=== PATIENT | female | born 1930 | race Caucasian/White ===

== ENCOUNTER → 2016-12-02 | Outpatient (CLI) | payer MEDICARE ==
[~2016-12-02] MED LIST: ASPI81TA7 PO; FOSI PO; NADO20TA2 PO
--- NOTE | 2016-12-02 14:39 | REP ---
Clinical: Incisional hernia. History of colon cancer. Comparison: 09/16/2015, 05/07/2014. Findings: Lung bases clear. Visualized heart and pericardium normal. Liver, spleen, pancreas, bilateral adrenal glands are normal. Cholelithiasis noted. Kidneys demonstrate chronic atrophic changes as well as left renal lesions suggesting cysts and possible lower pole mass. The enteric system is without obstruction or acute inflammatory process. Sigmoid diverticulosis noted without acute diverticulitis. Pelvis demonstrates normal bladder and evidence for prior hysterectomy. No pelvic fluid or ascites. No obvious adenopathy. No mass lesion. Atherosclerotic changes to the vasculature noted without aneurysm. Musculoskeletal structures demonstrate age-related degenerative changes. No hernias are identified. Impression: 1. Diverticulosis without acute diverticulitis. 2. Left renal hypodensities suggesting upper pole cysts and suspected lower pole renal mass similar to 2014. 3. Cholelithiasis. 4. No hernia. 5. No further acute intra-abdominal or pelvic pathology appreciated. Signed by Fred Jackson MD 12/02/2016 02:31 P
== END ==
LOC: M RAD 13:27
PROVIDERS: ATTEND Surgery
DX: K57.30 Diverticulosis of large intestine without perforation or abscess without bleeding (principal); K80.20 Calculus of gallbladder without cholecystitis without obstruction; Z85.038 Personal history of other malignant neoplasm of large intestine

== ENCOUNTER → 2017-06-28 | Outpatient (REF) | payer MEDICARE | LOC: M LAB REF 17:29 | PROVIDERS: ATTEND Internal Medicine | DX: C18.9 Malignant neoplasm of colon, unspecified (principal) ==

== ENCOUNTER → 2017-07-07 | Outpatient (CLI) | payer MEDICARE ==
[~2017-07-07] MED LIST changes: +GASTROGRAFIN SOLUTION 30ML (Q9963) As Ordered ONE
--- NOTE | 2017-07-07 17:07 | REP ---
CT of the abdomen and pelvis without IV contrast but with bowel contrast: Comparison is 12/02/2016. There is an L 8 mm nodule in the posterior basilar segment of the right lower lobe. This measured 7 mm and 09/16/2015 and 5 mm 09/13. The hepatic parenchyma is homogeneous. There is any 2.1-cm gallbladder calculus with rim calcification, unchanged. The pancreas and spleen are unremarkable. The adrenals are unremarkable. Right kidney appears atrophic but otherwise unremarkable. I suspect there is a solid mass at the lower pole of the right kidney. This could be confirmed by MRI or ultrasound. The absence of IV contrast and CT is less sensitive. There are hypodensities in the mid and upper pole of the left kidney compatible with cysts, unchanged. There is calcified atheroma. The abdominal aorta. No aneurysm or adenopathy. The bowel and mesentery are unremarkable except for diverticulosis without diverticulitis, unchanged. Pelvis: There is a hysterectomy. Vaginal cuff and adnexa are unremarkable. The bladder is unremarkable. There is no ascites or adenopathy. Impression: Probable solid mass at the lower pole of the left kidney, unchanged. Left renal cyst. Atrophic right kidney. Gallbladder calculus, unchanged. Diverticulosis without diverticulitis. Signed by Beltran Gallo MD 07/07/2017 04:58 P
== END ==
LOC: M RAD 12:12
PROVIDERS: ATTEND Internal Medicine
DX: N28.89 Other specified disorders of kidney and ureter (principal); Z85.038 Personal history of other malignant neoplasm of large intestine; N28.1 Cyst of kidney, acquired; K80.20 Calculus of gallbladder without cholecystitis without obstruction; K57.30 Diverticulosis of large intestine without perforation or abscess without bleeding
CPT/HCPCS: 74176; Q9963

== ENCOUNTER → 2017-09-20 | Outpatient (REF) | payer MEDICARE ==
[~2017-09-20] MED LIST changes: -GASTROGRAFIN SOLUTION 30ML (Q9963) As Ordered ONE
== END ==
LOC: M LAB REF 17:33
PROVIDERS: ATTEND Internal Medicine
DX: C18.9 Malignant neoplasm of colon, unspecified (principal)

== ENCOUNTER → 2017-12-12 | Outpatient (CLI) | payer MEDICARE ==
[2017-12-12 12:03] LABS: BLOOD UREA NITROGEN 19 MG/DL (7-18)
[2017-12-12 12:03] LABS: CREATININE FOR GFR 1.04 MG/DL (0.55-1.30); GLOMERULAR FILTRATION RATE 53.5 (>32)
== END ==
LOC: M LAB 11:12
DX: R10.31 Right lower quadrant pain (principal)
CPT/HCPCS: 82565

== ENCOUNTER → 2017-12-13 | Outpatient (CLI) | payer MEDICARE ==
[~2017-12-13] MED LIST changes: -ASPI81TA7 PO; -FOSI PO; +GASTROGRAFIN SOLUTION 30ML (Q9963) As Ordered; +ISOVUE-370 76% 100ML VIAL (Q9967) As Ordered; -NADO20TA2 PO
== END ==
LOC: M RAD 14:56
DX: R10.31 Right lower quadrant pain (principal); R19.07 Generalized intra-abdominal and pelvic swelling, mass and lump; E27.9 Disorder of adrenal gland, unspecified; N28.89 Other specified disorders of kidney and ureter; N28.1 Cyst of kidney, acquired
CPT/HCPCS: Q9963

== ENCOUNTER → 2018-01-04 | Outpatient (CLI) | payer MEDICARE ==
[~2018-01-04] MED LIST changes: -GASTROGRAFIN SOLUTION 30ML (Q9963) As Ordered; -ISOVUE-370 76% 100ML VIAL (Q9967) As Ordered; +LIDOCAINE 1% MDV 20ML VIAL As Ordered
[2018-01-04 10:44] LABS: INR 1.08; PROTHROMBIN TIME 14.1 SECONDS (12.4-14.5)
[2018-01-04 10:45] LABS: PARTIAL THROMBOPLASTIN TIME 38.6 SECONDS (26.8-37.9)
== END ==
LOC: M LAB 10:26 → M RADPRO 10:26
DX: C79.2 Secondary malignant neoplasm of skin (principal); C80.1 Malignant (primary) neoplasm, unspecified; Z79.899 Other long term (current) drug therapy; Z91.040 Latex allergy status; Z88.8 Allergy status to other drugs, medicaments and biological substances; Z91.048 Other nonmedicinal substance allergy status
CPT/HCPCS: 49180

== ENCOUNTER 2018-02-14 10:15 | Inpatient (IN) | payer MEDICARE ==
[2018-02-14] MEDS: PANTOPRAZOLE 40MG INJ (PROTONIX) (C9113) IV (09:00)
[2018-02-14] MEDS: FOSINOPRIL 10 MG TAB PO (09:00)
[2018-02-14] MEDS ORDERED: ePHEDrine SULFATE 25 MG/5 ML(5MG/ML) SYRINGE As Ordered (10:27)
[2018-02-14] MEDS ORDERED: fentaNYL 100 MCG/2 ML INJECTION (J3010) As Ordered ×2 (10:27→14:02)
[2018-02-14] MEDS ORDERED: ROCURONIUM BROMIDE 50 MG/5 ML VIAL As Ordered (10:27)
[2018-02-14] MEDS ORDERED: PHENYLEPHRINE INJ 10MG/ML VIAL (J2370) As Ordered (10:27)
[2018-02-14] MEDS ORDERED: NS 1,000 ML IV ×2 (10:30→13:38)
[2018-02-14] MEDS ORDERED: SCOPOLAMINE 1MG TRANSDERMAL PATCH As Ordered (11:45)
[2018-02-14] MEDS: SCOPOLAMINE 1MG TRANSDERMAL PATCH TOP (11:49)
[2018-02-14] MEDS: BUPIVACAINE/EPIN 0.5% 30 ML VIAL As Ordered ×2 (12:07→13:30)
[2018-02-14] MEDS: CEFAZOLIN SOD 1 GM in APPROPRIATE DILUENT 1 EA IV (12:44)
[2018-02-14] MEDS ORDERED: dexameTHASONE 4 MG/ML 1ML VIAL (J1100) As Ordered ×2 (12:44)
[2018-02-14] MEDS ORDERED: HYDROmorphone HCL 2 MG/ML 1ML VIAL (J1170) As Ordered (13:07)
[2018-02-14] MEDS: BUPIVACAINE HCL 0.25% 30 ML VIAL As Ordered (13:23)
[2018-02-14] MEDS: BUPIVACAINE LIPOSOME/PF 1.3% 20 ML VIAL (13.3MG/ML)(EXPAREL) As Ordered (13:23)
[2018-02-14] MEDS ORDERED: ONDANSETRON 4MG/2ML VIAL (J2405) As Ordered (13:28)
[2018-02-14] MEDS: NS 1,000 ML IV ×2 (13:38→21:38)
[2018-02-14] MEDS ORDERED: PROMETHAZINE INJ 25 MG/ML VIAL (J2550) IV (13:45)
[2018-02-14] MEDS ORDERED: NALOXONE INJ 0.4 MG/1 ML VIAL (J2310) IV (13:45)
[2018-02-14] MEDS ORDERED: SENNA 8.6 MG TAB (SENOKOT) PO (13:45)
[2018-02-14] MEDS ORDERED: NALBUPHINE HCL 10 MG/ML AMP (J2300) IV (13:45)
[2018-02-14] MEDS ORDERED: EPIDURAL/PCA KEYS XX (13:45)
[2018-02-14] MEDS ORDERED: METOCLOPRAMIDE INJ 10MG/2ML VIAL (J2765) IV (13:45)
[2018-02-14] MEDS ORDERED: MORPHINE 1MG/ML IN 0.9% NACL 100ML IV BAG IV (13:45)
[2018-02-14] MEDS ORDERED: IPRATROPIUM 0.5MG/ALBUTEROL 2.5MG INH SOL UD 3ML (DUONEB)(J7620) NEB (13:45)
[2018-02-14] MEDS ORDERED: MORPHINE 1MG/ML IN 0.9% NACL 100ML IV BAG As Ordered (13:57)
[2018-02-14] MEDS: fentaNYL 100 MCG/2 ML INJECTION (J3010) IV ×4 (14:10→14:30)
[2018-02-14] MEDS: LR 1,000 ML IV (14:30)
[2018-02-14] MEDS ORDERED: PERCOCET 5MG/325MG TAB PO (14:30)
[2018-02-14] MEDS ORDERED: ONDANSETRON 4MG/2ML VIAL (J2405) IV (14:30)
[2018-02-14] MEDS: NADOLOL 20MG TABLET PO (15:55)
[2018-02-14] MEDS: IPRATROPIUM 0.5MG/ALBUTEROL 2.5MG INH SOL UD 3ML (DUONEB)(J7620) NEB ×2 (17:36→20:00)
[2018-02-14] MEDS: DOCUSATE SODIUM 100 MG CAP PO (20:15)
[2018-02-15] MEDS: IPRATROPIUM 0.5MG/ALBUTEROL 2.5MG INH SOL UD 3ML (DUONEB)(J7620) NEB ×4 (02:00→20:00)
[2018-02-15] MEDS: NS 1,000 ML IV ×2 (05:16→15:09)
[2018-02-15 06:12] LABS: HEMATOCRIT 39.6 % (36.0-47.0); MEAN CORPUSCULAR HGB CONC 32.8 g/dl (32.0-36.5); MEAN CORPUSCULAR VOLUME 94.3 fl (80.0-96.0); PLATELET COUNT, AUTOMATED 180 10^3/uL (150-450); RED CELL DISTRIBUTION WIDTH 12.1 % (11.5-14.5); WHITE BLOOD COUNT 11.8 10^3/uL (4.0-10.0)
[2018-02-15 06:35] LABS: ANION GAP 6 MEQ/L (8-16); BLOOD UREA NITROGEN 15 MG/DL (7-18); CALCIUM LEVEL 7.6 MG/DL (8.8-10.2); CARBON DIOXIDE LEVEL 22 MEQ/L (21-32); CHLORIDE LEVEL 114 MEQ/L (98-107); CREATININE FOR GFR 0.92 MG/DL (0.55-1.30); GLOMERULAR FILTRATION RATE > 60.0 (>32); GLUCOSE, FASTING 101 MG/DL (70-100); POTASSIUM SERUM 4.6 MEQ/L (3.5-5.1); SODIUM LEVEL 142 MEQ/L (136-145)
[2018-02-15] MEDS: DOCUSATE SODIUM 100 MG CAP PO ×2 (08:59→20:06)
[2018-02-15] MEDS: FOSINOPRIL 10 MG TAB PO (09:00)
[2018-02-15] MEDS: PANTOPRAZOLE 40MG INJ (PROTONIX) (C9113) IV (09:00)
[2018-02-15] MEDS ORDERED: ACETAMINOPHEN TAB 650MG DOSE (2X325MG) PO (16:30)
[2018-02-15] MEDS: NADOLOL 20MG TABLET PO (20:08)
[2018-02-16] MEDS: traMADol 50 MG TAB PO ×5 (00:39→21:08)
[2018-02-16] MEDS: IPRATROPIUM 0.5MG/ALBUTEROL 2.5MG INH SOL UD 3ML (DUONEB)(J7620) NEB ×4 (01:31→20:00)
[2018-02-16 06:18] LABS: HEMATOCRIT 38.1 % (36.0-47.0); HEMOGLOBIN 12.3 g/dl (12.0-15.5); MEAN CORPUSCULAR HEMOGLOBIN 30.5 pg (27.0-33.0); MEAN CORPUSCULAR HGB CONC 32.3 g/dl (32.0-36.5); MEAN CORPUSCULAR VOLUME 94.5 fl (80.0-96.0); PLATELET COUNT, AUTOMATED 190 10^3/uL (150-450); RED BLOOD COUNT 4.03 10^6/uL (4.00-5.40); RED CELL DISTRIBUTION WIDTH 12.2 % (11.5-14.5); WHITE BLOOD COUNT 9.9 10^3/uL (4.0-10.0)
[2018-02-16 06:36] LABS: ANION GAP 9 MEQ/L (8-16); BLOOD UREA NITROGEN 16 MG/DL (7-18); CALCIUM LEVEL 8.4 MG/DL (8.8-10.2); CARBON DIOXIDE LEVEL 21 MEQ/L (21-32); CHLORIDE LEVEL 112 MEQ/L (98-107); CREATININE FOR GFR 0.93 MG/DL (0.55-1.30); GLOMERULAR FILTRATION RATE > 60.0 (>32); GLUCOSE, FASTING 72 MG/DL (70-100); SODIUM LEVEL 142 MEQ/L (136-145)
[2018-02-16] MEDS: PANTOPRAZOLE 40MG INJ (PROTONIX) (C9113) IV (08:30)
[2018-02-16] MEDS: FOSINOPRIL 10 MG TAB PO (08:37)
[2018-02-16] MEDS: DOCUSATE SODIUM 100 MG CAP PO ×2 (08:37→21:07)
[2018-02-16] MEDS: NADOLOL 20MG TABLET PO (21:07)
[2018-02-17] MEDS: IPRATROPIUM 0.5MG/ALBUTEROL 2.5MG INH SOL UD 3ML (DUONEB)(J7620) NEB ×4 (01:15→20:00)
[2018-02-17] MEDS: traMADol 50 MG TAB PO ×3 (02:42→21:26)
[2018-02-17 05:54] LABS: HEMATOCRIT 38.5 % (36.0-47.0); HEMOGLOBIN 12.6 g/dl (12.0-15.5); MEAN CORPUSCULAR HEMOGLOBIN 30.6 pg (27.0-33.0); MEAN CORPUSCULAR HGB CONC 32.7 g/dl (32.0-36.5); MEAN CORPUSCULAR VOLUME 93.4 fl (80.0-96.0); PLATELET COUNT, AUTOMATED 198 10^3/uL (150-450); RED BLOOD COUNT 4.12 10^6/uL (4.00-5.40); RED CELL DISTRIBUTION WIDTH 12.1 % (11.5-14.5); WHITE BLOOD COUNT 10.7 10^3/uL (4.0-10.0)
[2018-02-17 06:25] LABS: ANION GAP 8 MEQ/L (8-16); BLOOD UREA NITROGEN 19 MG/DL (7-18); CALCIUM LEVEL 8.3 MG/DL (8.8-10.2); CARBON DIOXIDE LEVEL 21 MEQ/L (21-32); CHLORIDE LEVEL 111 MEQ/L (98-107); CREATININE FOR GFR 0.86 MG/DL (0.55-1.30); GLOMERULAR FILTRATION RATE > 60.0 (>32); GLUCOSE, FASTING 72 MG/DL (70-100); POTASSIUM SERUM 3.8 MEQ/L (3.5-5.1); SODIUM LEVEL 140 MEQ/L (136-145)
[2018-02-17] MEDS: PANTOPRAZOLE 40MG INJ (PROTONIX) (C9113) IV (09:00)
[2018-02-17] MEDS: ONDANSETRON 4MG/2ML VIAL (J2405) IV ×2 (09:00→17:00)
[2018-02-17] MEDS: MIRALAX *UNIT DOSE* 17GM PACKET PO ×2 (11:45→12:41)
[2018-02-17] MEDS: DOCUSATE SODIUM 100 MG CAP PO ×2 (12:40→21:24)
[2018-02-17] MEDS: FOSINOPRIL 10 MG TAB PO (12:41)
[2018-02-17] MEDS: NADOLOL 20MG TABLET PO (21:25)
[2018-02-18] MEDS: IPRATROPIUM 0.5MG/ALBUTEROL 2.5MG INH SOL UD 3ML (DUONEB)(J7620) NEB ×4 (01:17→20:00)
[2018-02-18 05:45] LABS: HEMOGLOBIN 12.8 g/dl (12.0-15.5); MEAN CORPUSCULAR HEMOGLOBIN 30.4 pg (27.0-33.0); MEAN CORPUSCULAR HGB CONC 32.8 g/dl (32.0-36.5); MEAN CORPUSCULAR VOLUME 92.6 fl (80.0-96.0); PLATELET COUNT, AUTOMATED 217 10^3/uL (150-450); RED BLOOD COUNT 4.21 10^6/uL (4.00-5.40); RED CELL DISTRIBUTION WIDTH 12.1 % (11.5-14.5); WHITE BLOOD COUNT 11.8 10^3/uL (4.0-10.0)
[2018-02-18 06:01] LABS: ANION GAP 10 MEQ/L (8-16); BLOOD UREA NITROGEN 18 MG/DL (7-18); CALCIUM LEVEL 8.2 MG/DL (8.8-10.2); CARBON DIOXIDE LEVEL 22 MEQ/L (21-32); CHLORIDE LEVEL 109 MEQ/L (98-107); CREATININE FOR GFR 0.89 MG/DL (0.55-1.30); GLOMERULAR FILTRATION RATE > 60.0 (>32); GLUCOSE, FASTING 85 MG/DL (70-100); SODIUM LEVEL 141 MEQ/L (136-145)
[2018-02-18] MEDS: PANTOPRAZOLE 40MG INJ (PROTONIX) (C9113) IV (08:50)
[2018-02-18] MEDS: DOCUSATE SODIUM 100 MG CAP PO ×2 (09:20→20:08)
[2018-02-18] MEDS: FOSINOPRIL 10 MG TAB PO (09:21)
[2018-02-18] MEDS: FLEET ENEMA PR (12:00)
[2018-02-18] MEDS: NADOLOL 20MG TABLET PO (20:07)
[2018-02-19] MEDS: IPRATROPIUM 0.5MG/ALBUTEROL 2.5MG INH SOL UD 3ML (DUONEB)(J7620) NEB ×4 (02:00→20:00)
[2018-02-19 06:09] LABS: HEMATOCRIT 36.7 % (36.0-47.0); HEMOGLOBIN 12.2 g/dl (12.0-15.5); MEAN CORPUSCULAR HEMOGLOBIN 30.8 pg (27.0-33.0); MEAN CORPUSCULAR HGB CONC 33.2 g/dl (32.0-36.5); MEAN CORPUSCULAR VOLUME 92.7 fl (80.0-96.0); PLATELET COUNT, AUTOMATED 196 10^3/uL (150-450); RED BLOOD COUNT 3.96 10^6/uL (4.00-5.40); RED CELL DISTRIBUTION WIDTH 12.1 % (11.5-14.5); WHITE BLOOD COUNT 9.5 10^3/uL (4.0-10.0)
[2018-02-19 06:19] LABS: ANION GAP 9 MEQ/L (8-16); BLOOD UREA NITROGEN 19 MG/DL (7-18); CALCIUM LEVEL 8.1 MG/DL (8.8-10.2); CARBON DIOXIDE LEVEL 23 MEQ/L (21-32); CHLORIDE LEVEL 109 MEQ/L (98-107); CREATININE FOR GFR 0.87 MG/DL (0.55-1.30); GLOMERULAR FILTRATION RATE > 60.0 (>32); GLUCOSE, FASTING 75 MG/DL (70-100); POTASSIUM SERUM 3.5 MEQ/L (3.5-5.1); SODIUM LEVEL 141 MEQ/L (136-145)
[2018-02-19] MEDS: FOSINOPRIL 10 MG TAB PO (08:28)
[2018-02-19] MEDS: PANTOPRAZOLE 40MG INJ (PROTONIX) (C9113) IV (08:28)
[2018-02-19] MEDS: DOCUSATE SODIUM 100 MG CAP PO ×2 (08:28→20:39)
[2018-02-19] MEDS: NADOLOL 20MG TABLET PO (20:40)
[2018-02-20] MEDS: IPRATROPIUM 0.5MG/ALBUTEROL 2.5MG INH SOL UD 3ML (DUONEB)(J7620) NEB ×2 (01:36→07:37)
[2018-02-20 05:55] LABS: HEMATOCRIT 37.3 % (36.0-47.0); HEMOGLOBIN 12.4 g/dl (12.0-15.5); MEAN CORPUSCULAR HEMOGLOBIN 30.5 pg (27.0-33.0); MEAN CORPUSCULAR HGB CONC 33.2 g/dl (32.0-36.5); MEAN CORPUSCULAR VOLUME 91.9 fl (80.0-96.0); PLATELET COUNT, AUTOMATED 184 10^3/uL (150-450); RED BLOOD COUNT 4.06 10^6/uL (4.00-5.40); RED CELL DISTRIBUTION WIDTH 12.2 % (11.5-14.5); WHITE BLOOD COUNT 9.5 10^3/uL (4.0-10.0)
[2018-02-20 06:03] LABS: ANION GAP 7 MEQ/L (8-16); BLOOD UREA NITROGEN 20 MG/DL (7-18); CALCIUM LEVEL 8.1 MG/DL (8.8-10.2); CARBON DIOXIDE LEVEL 25 MEQ/L (21-32); CHLORIDE LEVEL 110 MEQ/L (98-107); CREATININE FOR GFR 0.85 MG/DL (0.55-1.30); GLOMERULAR FILTRATION RATE > 60.0 (>32); GLUCOSE, FASTING 79 MG/DL (70-100); POTASSIUM SERUM 3.4 MEQ/L (3.5-5.1); SODIUM LEVEL 142 MEQ/L (136-145)
[2018-02-20] MEDS: PANTOPRAZOLE 40MG INJ (PROTONIX) (C9113) IV (08:59)
[2018-02-20] MEDS: FOSINOPRIL 10 MG TAB PO (08:59)
[2018-02-20] MEDS: DOCUSATE SODIUM 100 MG CAP PO (08:59)
== END 2018-02-20 11:27 | disposition home or self-care (01) | DRG 354 ==
LOC: M SDC 10:15 → M MSPAV 15:45
PROC: 0WUF0JZ Supplement Abdominal Wall with Synthetic Substitute, Open Approach (ICD-10-PCS; principal; 2018-02-14 12:23)
PROC: 0WQF0ZZ Repair Abdominal Wall, Open Approach (ICD-10-PCS; 2018-02-14 12:23)
DX: K43.2 Incisional hernia without obstruction or gangrene (principal); C79.89 Secondary malignant neoplasm of other specified sites; C18.9 Malignant neoplasm of colon, unspecified; I12.9 Hypertensive chronic kidney disease with stage 1 through stage 4 chronic kidney disease, or unspecified chronic kidney disease; E78.5 Hyperlipidemia, unspecified; K59.00 Constipation, unspecified; N18.3 Chronic kidney disease, stage 3 (moderate)

== ENCOUNTER → 2018-03-09 | Outpatient (CLI) | payer MEDICARE | LOC: M RAD 10:31 | DX: I82.432 Acute embolism and thrombosis of left popliteal vein (principal) | CPT/HCPCS: 93971 ==

== ENCOUNTER 2018-10-07 12:29 | Emergency (ER) | payer MEDICARE ==
[~2018-10-07] VITALS: Ht 160 cm; Wt 59.1 kg
[~2018-10-07 12:29] MED LIST changes: +ASPI81TA7 PO; +FOSI PO; -LIDOCAINE 1% MDV 20ML VIAL As Ordered; +NADO20TA2 PO; +SENN8.6C PO; +TRAM50TA2; +TRAM50TA2 PO
[2018-10-07] MEDS ORDERED: ELIQ5TAB PO (12:42)
[2018-10-07] MEDS ORDERED: FOSI10TA2 PO (12:42)
[2018-10-07 13:15] LABS: BASO # 0.1 10^3/uL (0.0-0.2); BASO % 0.5 % (0.0-1.0); EOS # 0.2 10^3/uL (0.0-0.50); HEMATOCRIT 39.7 % (36.0-47.0); HEMOGLOBIN 12.7 g/dl (12.0-15.5); LYMPH % 21.1 % (24.0-44.0); MEAN CORPUSCULAR HEMOGLOBIN 30.8 pg (27.0-33.0); MEAN CORPUSCULAR VOLUME 96.1 fl (80.0-96.0); MONO # 1.1 10^3/uL (0.0-0.8); MONO % 11.8 % (0.0-5.0); NEUTROPHILS # 6.2 10^3/uL (1.8-7.7); NEUTROPHILS % 64.2 % (36.0-66.0); PLATELET COUNT, AUTOMATED 202 10^3/uL (150-450); RED BLOOD COUNT 4.13 10^6/uL (4.00-5.40); WHITE BLOOD COUNT 9.6 10^3/uL (4.0-10.0)
[2018-10-07 13:35] LABS: CALCIUM LEVEL 8.6 MG/DL (8.8-10.2); CREATININE FOR GFR 1.2 MG/DL (0.55-1.30); GLOMERULAR FILTRATION RATE 45.2 (>32)
--- NOTE | 2018-10-07 13:55 | REP ---
Clinical: Left knee pain. Technique: AP, lateral, bilateral oblique views of the left knee. Findings: Osteopenia and advanced tricompartmental osteoarthritic degenerative changes are appreciated including chondrocalcinosis. Overlying soft tissue swelling and possible suprapatellar effusion. Vascular calcifications identified. Evaluation for subtle trauma is limited by degenerative changes and osteopenia. Impression: Osteopenia and tricompartmental degenerative changes. No no definite acute fracture or injury identified. Electronically Signed by Fred Jackson MD 10/07/2018 01:47 P
--- NOTE | 2018-10-07 13:59 | REP ---
Clinical: Left lower extremity pain and swelling with history of DVT. Technique: Guo scale and color Doppler evaluation using linear high frequency transducer. Findings: Ultrasound examination of the left lower extremity deep venous structures from the common femoral vein to the popliteal vein demonstrates normal compressibility flow and wave patterns in response to respiration and augmentation. There is no evidence for deep venous thrombosis. Previously noted popliteal vein DVT appears to have resolved. There is a complex Garrett's cyst along the posteromedial knee measuring 6.8 x 2.0 x 4.0 cm. Impression: No evidence for deep venous thrombosis. Complex Garrett's cyst. Electronically Signed by Fred Jackson MD 10/07/2018 01:50 P
[2018-10-07 14:06] VITALS: BP 151/74
--- NOTE | 2018-10-08 14:50 | ED PDOC ---
Post-Departure Follow-Up dr sosa faxed formal report of left leg us for fu Raza Richard MD Oct 08, 2018 14:49
== END 2018-10-07 14:42 | disposition home or self-care (01) ==
LOC: M ED 12:29
DX: M71.22 Synovial cyst of popliteal space [Baker], left knee (principal); M85.862 Other specified disorders of bone density and structure, left lower leg; M17.12 Unilateral primary osteoarthritis, left knee; Z86.718 Personal history of other venous thrombosis and embolism; Z87.440 Personal history of urinary (tract) infections; Z72.0 Tobacco use; Z79.02 Long term (current) use of antithrombotics/antiplatelets; Z79.899 Other long term (current) drug therapy; Z88.0 Allergy status to penicillin; Z88.8 Allergy status to other drugs, medicaments and biological substances; Z91.040 Latex allergy status; Z91.89 Other specified personal risk factors, not elsewhere classified

== ENCOUNTER 2018-12-15 19:07 | Observation (INO) | payer MEDICARE ==
[~2018-12-15] VITALS: Ht 144.8 cm; Wt 59.1 kg
[~2018-12-15 19:07] MED LIST changes: +ELIQ5TAB PO; +FOSI10TA2 PO
[2018-12-15] MEDS ORDERED: NORCO, ANEXSIA 5/325MG TABLET (HYDROcodone/ACETAMINOPHEN) PO ONE (20:00)
--- NOTE | 2018-12-15 20:18 | REP ---
Clinical: Pain. Technique: AP and lateral views of the left knee. Comparison: 10/07/2018. Findings: Osteopenia and advanced degenerative changes are appreciated. Diffuse swelling and effusion identified. Trauma/injury involving the patella as well as the lateral femoral condyle cannot definitively be excluded and should be correlated with physical examination and history. Impression: 1. Osteopenia and advanced tricompartmental osteoarthritic degenerative changes. 2. Diffuse soft tissue swelling and suprapatellar effusion. 3. Irregularity involving the patella as well as the lateral femoral condyle concerning for injury versus osteomyelitis versus chronic advanced degenerative change. Electronically Signed by Fred Jackson MD 12/15/2018 08:09 P
--- NOTE | 2018-12-15 20:41 | REPVR ---
EXAM: US Duplex Left Lower Extremity Veins, Limited EXAM DATE/TIME: 12/15/2018 8:15 PM CLINICAL HISTORY: 88 years old, female; Pain; Leg, lower; Left; Additional info: Pain/swell TECHNIQUE: Real-time Duplex ultrasound of the Left Lower Extremity with 2-D vigil scale, color Doppler flow and spectral waveform analysis. Limited exam focused on the left lower extremity veins. COMPARISON: US Duplex, Ext,LOWER veins,unilat 10/07/2018 1:31 PM FINDINGS: Left deep veins: Unremarkable. The common femoral, femoral, proximal profunda femoral and popliteal veins are patent without thrombus. Normal Doppler waveforms. Normal compressibility and/or augmentation response. Left superficial veins: Unremarkable. Saphenofemoral junction is patent without thrombus. Soft tissues: Popliteal fossa cyst demonstrated which measures 4.4 x 6.3 x 2.2 cm. IMPRESSION: No DVT. Popliteal fossa cyst as described above. Electronically signed by: Marvin Nova On 12/15/2018 20:41:41 PM
[2018-12-15] MEDS ORDERED: dexameTHASONE 20 MG/5 ML VIAL (J1100) IV ONE (22:15)
[2018-12-15] MEDS ORDERED: ACET-683 PO (22:21)
[2018-12-15] MEDS ORDERED: NADO40TA PO (22:22)
[2018-12-15] MEDS ORDERED: traMADol 50 MG TAB PO PRN (22:45)
[2018-12-15 23:06] LABS: BASO % 0.3 % (0.0-1.0); EOS # 0.2 10^3/uL (0.0-0.50); EOS % 1.8 % (0.0-3.0); HEMOGLOBIN 11.7 g/dl (12.0-15.5); LYMPH % 19.4 % (24.0-44.0); MEAN CORPUSCULAR HEMOGLOBIN 31.6 pg (27.0-33.0); MEAN CORPUSCULAR HGB CONC 32.5 g/dl (32.0-36.5); MEAN CORPUSCULAR VOLUME 97.3 fl (80.0-96.0); MONO # 1.3 10^3/uL (0.0-0.8); MONO % 12.5 % (0.0-5.0); NEUTROPHILS # 6.9 10^3/uL (1.8-7.7); NEUTROPHILS % 65.7 % (36.0-66.0); PLATELET COUNT, AUTOMATED 191 10^3/uL (150-450); WHITE BLOOD COUNT 10.4 10^3/uL (4.0-10.0)
[2018-12-15 23:32] LABS: INR 1.52; PROTHROMBIN TIME 18.5 SECONDS (12.1-14.4)
[2018-12-15 23:33] LABS: PARTIAL THROMBOPLASTIN TIME 42.9 SECONDS (25.4-37.6)
--- NOTE | 2018-12-15 23:42 | HPE ---
DATE OF ADMISSION: 12/15/2018 CHIEF COMPLAINT: Knee pain. HISTORY OF THE PRESENT ILLNESS: The patient is an 88-year-old female with significant past medical history of severe osteoarthritis, hypertension, history of colon cancer, status post resection. The colon cancer was present in an umbilical hernia. She had the surgery 02/2018. History of deep vein thrombosis (DVT), complicating the surgery, on Eliquis. She presents to the emergency room with chronically progressive worsening left knee pain over the past several months. The patient presented to the emergency room in 09/2018 where she had an x-ray which showed severe osteoarthritis and a DVT, at which point she was started on Eliquis. She presents again. She denies any trauma; however, she states that her knee pain has progressively gotten worse since September, and she is having more difficulty ambulating. She denies any cough, chest pain, shortness of breath, abdominal pain, constipation, diarrhea, or urinary symptoms. PAST MEDICAL HISTORY: See history of the present illness. PAST SURGICAL HISTORY: Hysterectomy. Varicose vein surgery. Two abdominal surgeries for colon cancer resection. ALLERGIES: LATEX, PENICILLIN, PENICILLIN CROSS REACTORS, PHENYLBUTAZONE, and POVIDONE. HOME MEDICATIONS: Includes: - Eliquis - nadolol - fosinopril - Tylenol SOCIAL HISTORY: She denies tobacco, alcohol, or illicit drug use. FAMILY HISTORY: Diabetes, hypertension, and heart disease. REVIEW OF SYSTEMS: A 12-point review of systems was completed, all of which were negative except those listed in the history of the present illness. VITAL SIGNS ON ADMISSION: Temperature 96.7, pulse of 69, respirations of 18, blood pressure 148/67, saturating at 100% on room air. PHYSICAL EXAM: She is well nourished, in no apparent distress. Head is normocephalic, atraumatic Eyes: Extraocular movements are intact. Pupils equal, round, reactive to light. Neck is supple. No jugular venous pressure (JVP). Lungs are clear to auscultation. No crackles, wheezes, rales, or rhonchi. Cardiovascular: Regular rate and rhythm. Normal S1, S2. No murmurs, gallops, or rubs. Abdomen: Soft, nontender, nondistended. Positive bowel sounds. No rebound or guarding. Extremities: She has some erythema around the left ankle area, which she says has been chronic since her surgery with swelling and warmth of the left knee with suprapatellar effusion. No crackles. LABS AND IMAGING: Completed in the ER. X-ray of the knee shows osteopenia and advanced tricompartmental osteoarthritic degenerative changes, diffuse soft tissue swelling and suprapatellar effusion. Irregularity involving the patella as well as the lateral femoral condyle, concerning for injury versus osteomyelitis versus chronic advanced degenerative change. Dopplers showed no DVT. ASSESSMENT AND PLAN: Intractable knee pain, likely secondary to severe osteoarthritis, less likely to be septic arthritis. Will send labs, CBC, BMP, ESR, CRP. Patient states this is a chronic problem. Will place the patient on Ultram as needed, as well as get physical therapy. For history of DVT, continue her Eliquis. Colon cancer. Status post resection, stable. Hypertension. Continue home medications. Supportive: DVT prophylaxis: On Eliquis. Gastrointestinal (GI) prophylaxis: Not indicated. Diet: Regular.
[2018-12-15 23:50] LABS: C REACTIVE PROTEIN QUANTITATIV 2.05 MG/DL (0.00-0.30); CREATININE FOR GFR 1.02 MG/DL (0.55-1.30); GLOMERULAR FILTRATION RATE 54.6 (>32); POTASSIUM SERUM 4.7 MEQ/L (3.5-5.1)
[2018-12-15 23:56] LABS: ERYTHROCYTE SEDIMENTATION RATE 18 mm/hr (0-42)
[2018-12-16] MEDS: NADOLOL 20MG TABLET PO SCH ×2 (01:49→21:00)
[2018-12-16 07:34] LABS: HEMATOCRIT 34.6 % (36.0-47.0); HEMOGLOBIN 11.2 g/dl (12.0-15.5); MEAN CORPUSCULAR HEMOGLOBIN 30.9 pg (27.0-33.0); MEAN CORPUSCULAR HGB CONC 32.4 g/dl (32.0-36.5); MEAN CORPUSCULAR VOLUME 95.3 fl (80.0-96.0); PLATELET COUNT, AUTOMATED 186 10^3/uL (150-450); RED BLOOD COUNT 3.63 10^6/uL (4.00-5.40); WHITE BLOOD COUNT 5.1 10^3/uL (4.0-10.0)
[2018-12-16 08:00] VITALS: BP 116/74
[2018-12-16 08:02] LABS: CALCIUM LEVEL 7.9 MG/DL (8.8-10.2); CREATININE FOR GFR 1.02 MG/DL (0.55-1.30); GLOMERULAR FILTRATION RATE 54.6 (>32); POTASSIUM SERUM 5.1 MEQ/L (3.5-5.1)
[2018-12-16] MEDS: FOSINOPRIL 10 MG TAB PO SCH (08:38)
[2018-12-16] MEDS ORDERED: APIXABAN 5 MG TAB (ELIQUIS) PO SCH (09:00)
[2018-12-16] MEDS ORDERED: traMADol 50 MG TAB PO PRN (09:15)
[2018-12-16 09:19] LABS: C REACTIVE PROTEIN QUANTITATIV 2.11 MG/DL (0.00-0.30)
[2018-12-16 15:00] VITALS: BP 128/75
--- NOTE | 2018-12-16 16:57 | IPNPDOC ---
Text Note Date of Service The patient was seen on 12/16/18. NOTE Subjective: Patient is an 88-year-old female with a past medical history of Severe OA, HTN, Hx of Colon CA s/p resection 02/2018 (present in an umbilical hernia), Hx of DVT (on Eliquis), was presented to the ER with complaints of progressive left knee pain over the last several months. Patient has noted that over this time she's been having more difficulty with ambulation. She has noted that yesterday her knee had locked and she was unable to move for approximately one hour until she had contacted EMS services. Upon arrival to the emergency room, patient was evaluated and found to have symptoms all associated with severe osteoarthritis. Patient was admitted to the hospitalist service for further evaluation and treatment. Patient was seen and examined at the bedside. Patient currently does not experience any fevers or chills nor she experienced any in the last 2 weeks. She denies any nausea, vomiting, chest pain, shortness of breath or palpitations. Denies any abdominal pain, constipation, diarrhea or discomfort with urination. Objective: Vitals (See below) General: Lying in bed, no acute distress, comfortable, AAOx3 HEENT: NC, AT CVS: RRR, +S1S2 Lungs: Fair air entry b/l, -w/r/r Abdomen: Soft, ND, NT Extremities: - Edema, - Calf tenderness Joint: Some joint effusion is appreciated on examination; no redness, warmth or tenderness is appreciated Assessment and plan: Acute on chronic intractable pain - likely 2/2 severe osteoarthritis, unlikely 2/2 septic arthritis - Presented to the ER after experiencing months of worsening left knee pain - No episodes of fever or chills - Physical does not reveal any erythema, warmth or tenderness - Patient does report that upon ambulation she experiences severe knee pain and has described episodes where her knee locks in position - s/p Leukocytosis - XR L Knee 12/15: 1. Osteopenia and advanced tricompartmental osteoarthritic degenerative changes. 2. Diffuse soft tissue swelling and suprapatellar effusion. 3. Irregularity involving the patella as well as the lateral femoral condyle concerning for injury versus osteomyelitis versus chronic advanced degenerative change. - c/w Tramadol PRN - c/w physical therapy; awaiting clearance s/p Leukocytosis - likely 2/2 reactive etiology - ROS negative for source of infection - Remains afebrile / hemodynamically stable - Patient has received Dexamethasone 15mg IV in the ER; suspect Leukocytosis to recur - Will hold off on antibiotic therapy at this time HTN - BP well controlled - c/w Fosinopril / Nadolol Hx of Colon CA - s/p resection 02/2018 - Cancer was found to be present in an umbilical hernia Hx of DVT - c/w Eliquis DVT prophylaxis - Already on full anticoagulation with Eliquis VS,Fishbone, I+O VS, Fishbone, I+O Laboratory Tests 12/15/18 22:59 Red Blood Count 3.70 L, Mean Corpuscular Volume 97.3 H, Mean Corpuscular Hem oglobin 31.6, Mean Corpuscular Hemoglobin Concent 32.5, Red Cell Distribution Width 12.4, Neutrophils (%) (Auto) 65.7, Lymphocytes (%) (Auto) 19.4 L, Monocytes (%) (Auto) 12.5 H, Eosinophils (%) (Auto) 1.8, Basophils (%) (Auto) 0.3, Neutrophils # (Auto) 6.9, Lymphocytes # (Auto) 2.0, Monocytes # (Auto) 1.3 H, Eosinophils # (Auto) 0.2, Basophils # (Auto) 0.0, Calcium Level 8.0 L 12/16/18 06:46 Red Blood Count 3.63 L, Mean Corpuscular Volume 95.3, Mean Corpuscular Hemoglobin 30.9, Mean Corpuscular Hemoglobin Concent 32.4, Red Cell Distribution Width 12.3, Calcium Level 7.9 L Vital Signs Date Time Temp Pulse Resp B/P (MAP) Pulse Ox O2 Delivery O2 Flow Rate FiO2 12/16/18 15:30 18 12/16/18 15:00 98.3 67 128/75 (92) 96 12/16/18 07:30 Room Air IMELDA ESCOTO MD Dec 16, 2018 16:57
[2018-12-16] MEDS: APIXABAN 5 MG TAB (ELIQUIS) PO SCH (17:10)
[2018-12-16 22:00] VITALS: BP 98/56
[2018-12-17 06:00] VITALS: BP 102/58
[2018-12-17 06:58] LABS: HEMATOCRIT 33.2 % (36.0-47.0); HEMOGLOBIN 10.8 g/dl (12.0-15.5); MEAN CORPUSCULAR HEMOGLOBIN 31.2 pg (27.0-33.0); MEAN CORPUSCULAR HGB CONC 32.5 g/dl (32.0-36.5); PLATELET COUNT, AUTOMATED 221 10^3/uL (150-450); RED BLOOD COUNT 3.46 10^6/uL (4.00-5.40); WHITE BLOOD COUNT 11.6 10^3/uL (4.0-10.0)
[2018-12-17 07:17] LABS: CALCIUM LEVEL 8.1 MG/DL (8.8-10.2); CREATININE FOR GFR 1.36 MG/DL (0.55-1.30); GLOMERULAR FILTRATION RATE 39.2 (>32); POTASSIUM SERUM 4.8 MEQ/L (3.5-5.1)
[2018-12-17 08:30] VITALS: BP 102/56
[2018-12-17] MEDS ORDERED: NS 1,000 ML IV SCH (08:45)
[2018-12-17] MEDS: FOSINOPRIL 10 MG TAB PO SCH (09:00)
[2018-12-17] MEDS: APIXABAN 5 MG TAB (ELIQUIS) PO SCH ×2 (10:32→18:06)
--- NOTE | 2018-12-17 11:41 | IPNPDOC ---
Text Note Date of Service The patient was seen on 12/17/18. NOTE Subjective: Patient is an 88-year-old female with a past medical history of Severe OA, HTN, Hx of Colon CA s/p resection 02/2018 (present in an umbilical hernia), Hx of DVT (on Eliquis), was presented to the ER with complaints of progressive left knee pain over the last several months. Patient has noted that over this time she's been having more difficulty with ambulation. She has noted that yesterday her knee had locked and she was unable to move for approximately one hour until she had contacted EMS services. Upon arrival to the emergency room, patient was evaluated and found to have symptoms all associated with severe osteoarthritis. Patient was admitted to the hospitalist service for further evaluation and treatment. Patient was seen and examined at the bedside. I talked with the patient today. She was up, ambulate with physical therapy and has done well. They've indicated that she will need at least one to 2 more sessions. Currently she notes that her pain is better controlled with tramadol, although it does not last as long as every 12 hours. I have indicated to her that we will change the frequency. Currently she denies any chest pain, shortness of breath, palpitations. Denies nausea, vomiting, abdominal pain, constipation, diarrhea or any discomfort with urination. Objective: Vitals (See below) General: Lying in bed, no acute distress, comfortable, AAOx3 HEENT: NC, AT CVS: RRR, +S1S2 Lungs: Fair air entry b/l, auscultation without any wheezing, rales or rhonchi Abdomen: Soft, nondistended, without tenderness Extremities: No evidence of LE edema, - Calf tenderness Joint: Again joint effusion is appreciated on examination; but there is no redness, warmth or tenderness on palpation Assessment and plan: Acute on chronic intractable pain - likely 2/2 severe osteoarthritis, unlikely 2/2 septic arthritis - , Currently patient notes that her pain is better controlled and she is working with physical therapy - No episodes of fever or chills - Physical does not reveal any erythema, warmth or tenderness - Patient does report that upon ambulation she experiences severe knee pain and has described episodes where her knee locks in position - XR L Knee 12/15: 1. Osteopenia and advanced tricompartmental osteoarthritic degenerative changes. 2. Diffuse soft tissue swelling and suprapatellar effusion. 3. Irregularity involving the patella as well as the lateral femoral condyle concerning for injury versus osteomyelitis versus chronic advanced degenerative change. - c/w Tramadol PRN; will adjust frequency to q6h - c/w physical therapy; awaiting clearance Leukocytosis - likely 2/2 reactive etiology - likely 2/2 dexamethasone - ROS negative for source of infection - Remains afebrile / hemodynamically stable - Patient has received Dexamethasone 15mg IV in the ER - Will continue to hold off on antibiotic therapy at this time HTN - BP well controlled - c/w Fosinopril / Nadolol Hx of Colon CA - s/p resection 02/2018 - Cancer was found to be present in an umbilical hernia Hx of DVT - c/w Eliquis DVT prophylaxis - Already on full anticoagulation with Eliquis Disposition: - c/w physical therapy - Patient is indicated that she does not want to have any intervention done of her knee and wants avoid any needles if possible - I described to the patient that without an aspiration is difficult to ascertain specific etiologies; she understands risks and is willing to try medications alone at this point VS,Fishbone, I+O VS, Fishbone, I+O Laboratory Tests 12/17/18 06:22 Red Blood Count 3.46 L, Mean Corpuscular Volume 96.0, Mean Corpuscular Hemoglobin 31.2, Mean Corpuscular Hemoglobin Concent 32.5, Red Cell Distribution Width 12.6, Calcium Level 8.1 L Vital Signs Date Time Temp Pulse Resp B/P (MAP) Pulse Ox O2 Delivery O2 Flow Rate FiO2 12/17/18 09:00 102/56 12/17/18 08:30 97.8 62 16 98 12/16/18 07:30 Room Air I&O- Last 24 Hours up to 6 AM 12/17/18 06:00 Intake Total 900 ml Output Total 450 ml Balance 450 ml IMELDA ESCOTO MD Dec 17, 2018 11:41
[2018-12-17 14:00] VITALS: BP 132/67
[2018-12-17] MEDS: NADOLOL 20MG TABLET PO SCH (20:48)
[2018-12-17] MEDS: traMADol 50 MG TAB PO PRN (20:49)
[2018-12-17 22:00] VITALS: BP 122/60
[2018-12-18 06:00] VITALS: BP 130/60
[2018-12-18 07:06] LABS: HEMATOCRIT 34.6 % (36.0-47.0); HEMOGLOBIN 11.2 g/dl (12.0-15.5); MEAN CORPUSCULAR HEMOGLOBIN 31.2 pg (27.0-33.0); MEAN CORPUSCULAR HGB CONC 32.4 g/dl (32.0-36.5); MEAN CORPUSCULAR VOLUME 96.4 fl (80.0-96.0); PLATELET COUNT, AUTOMATED 244 10^3/uL (150-450); RED BLOOD COUNT 3.59 10^6/uL (4.00-5.40); WHITE BLOOD COUNT 10.1 10^3/uL (4.0-10.0)
[2018-12-18 07:28] LABS: CALCIUM LEVEL 7.8 MG/DL (8.8-10.2); CREATININE FOR GFR 1.32 MG/DL (0.55-1.30); GLOMERULAR FILTRATION RATE 40.5 (>32); POTASSIUM SERUM 4.5 MEQ/L (3.5-5.1)
[2018-12-18] MEDS ORDERED: NS 1,000 ML IV SCH (07:45)
[2018-12-18] MEDS: APIXABAN 5 MG TAB (ELIQUIS) PO SCH ×2 (09:17→17:18)
[2018-12-18 14:00] VITALS: BP 117/57
--- NOTE | 2018-12-18 16:04 | IPNPDOC ---
Text Note Date of Service The patient was seen on 12/18/18. NOTE Subjective: Patient is an 88-year-old female with a past medical history of Severe OA, HTN, Hx of Colon CA s/p resection 02/2018 (present in an umbilical hernia), Hx of DVT (on Eliquis), was presented to the ER with complaints of progressive left knee pain over the last several months. Patient has noted that over this time she's been having more difficulty with ambulation. She has noted that yesterday her knee had locked and she was unable to move for approximately one hour until she had contacted EMS services. Upon arrival to the emergency room, patient was evaluated and found to have symptoms all associated with severe osteoarthritis. Patient was admitted to the hospitalist service for further evaluation and treatment. Patient was seen and examined at the bedside. Currently patient notes that they have been progressing with physical therapy. They note that her pain is better controlled with current pain regimen. They deny chest pain, shortness breath, palpitations. They deny nausea, vomiting, abdominal pain, constipation, diarrhea or any discomfort with urination. Objective: Vitals (See below) General: Lying in bed, no acute distress, comfortable, AAOx3 HEENT: NC, AT CVS: RRR, +S1S2 Lungs: Air entry remains fair bilaterally, degenerative does not appear to be any evidence of rhonchi, rales or wheezing upon auscultation Abdomen: Remains soft, nondistended, without tenderness Extremities: No evidence of LE edema, - Calf tenderness Joint: There does not appear to be any redness, warmth or significant tenderness on palpation. There does still appear to be some joint effusion Assessment and plan: Acute on chronic intractable pain - likely 2/2 severe osteoarthritis, unlikely 2/2 septic arthritis - Patient is indicated that her pain is much better controlled - She has not experienced any febrile episodes throughout the hospital course - Physical does not reveal any erythema, warmth or tenderness; there only appears to be mild effusion - XR L Knee 12/15: 1. Osteopenia and advanced tricompartmental osteoarthritic degenerative changes. 2. Diffuse soft tissue swelling and suprapatellar effusion. 3. Irregularity involving the patella as well as the lateral femoral condyle concerning for injury versus osteomyelitis versus chronic advanced degenerative change. - Patient is indicated that she does not want to have any intervention done of her knee and wants avoid any needles - Advised patient that without a knee aspiration is difficult to ascertain specific etiologies; she understands risks and is willing to try medications alone at this point - c/w Tramadol PRN at adjusted dose - c/w physical therapy; has cleared for discharge; has been progressing well Leukocytosis - likely 2/2 reactive etiology - likely 2/2 dexamethasone - ROS negative for source of infection - Remains afebrile / hemodynamically stable - Patient has received Dexamethasone 15mg IV in the ER - Will continue to hold off on antibiotic therapy at this time Elevated of Cr - likely 2/2 pre-renal etiology, possibly 2/2 intra-renal etiology - Creatinine baseline appears to be 0.8-1.2 - Patient has had a slight bump in her creatinine - Will continue with IV fluid hydration for 1 L only HTN - BP well controlled - Hold Fosinopril - c/w Nadolol Hx of Colon CA - s/p resection 02/2018 - Cancer was found to be present in an umbilical hernia Hx of DVT - c/w Eliquis DVT prophylaxis - Already on full anticoagulation with Eliquis Disposition: - c/w physical therapy; has cleared - Will continue with IV for hydration - Anticipate discharge within next 24 hours VS,Fishbone, I+O VS, Fishbone, I+O Laboratory Tests 12/18/18 06:42 Red Blood Count 3.59 L, Mean Corpuscular Volume 96.4 H, Mean Corpuscular Hemoglobin 31.2, Mean Corpuscular Hemoglobin Concent 32.4, Red Cell Distribution Width 12.8, Calcium Level 7.8 L Vital Signs Date Time Temp Pulse Resp B/P (MAP) Pulse Ox O2 Delivery O2 Flow Rate FiO2 12/18/18 06:00 96.8 63 18 130/60 (83) 97 12/16/18 07:30 Room Air I&O- Last 24 Hours up to 6 AM 12/18/18 06:00 Intake Total 1240 ml Output Total 1100 ml Balance 140 ml IMELDA ESCOTO MD Dec 18, 2018 16:04
[2018-12-18] MEDS: traMADol 50 MG TAB PO PRN (21:24)
[2018-12-18 21:25] VITALS: BP 126/75
[2018-12-18] MEDS: NADOLOL 20MG TABLET PO SCH (21:25)
[2018-12-18 22:00] VITALS: BP 126/75
[2018-12-19 06:00] VITALS: BP 155/76
[2018-12-19 06:56] LABS: HEMOGLOBIN 12.2 g/dl (12.0-15.5); MEAN CORPUSCULAR HEMOGLOBIN 30.7 pg (27.0-33.0); MEAN CORPUSCULAR HGB CONC 31.3 g/dl (32.0-36.5); MEAN CORPUSCULAR VOLUME 98.2 fl (80.0-96.0); PLATELET COUNT, AUTOMATED 226 10^3/uL (150-450); RED BLOOD COUNT 3.97 10^6/uL (4.00-5.40); WHITE BLOOD COUNT 9.3 10^3/uL (4.0-10.0)
[2018-12-19] MEDS: APIXABAN 5 MG TAB (ELIQUIS) PO SCH (08:10)
[2018-12-19 08:22] LABS: CALCIUM LEVEL 8.1 MG/DL (8.8-10.2); CREATININE FOR GFR 1.04 MG/DL (0.55-1.30); GLOMERULAR FILTRATION RATE 53.4 (>32); POTASSIUM SERUM 4.4 MEQ/L (3.5-5.1)
[2018-12-19] MEDS ORDERED: TRAM50TA2 PO (08:47)
--- NOTE | 2018-12-19 13:12 | DS.PDOC ---
Discharge Summary General Date of Admission Dec 15, 2018 at 22:46 Date of Discharge 12/19/2018 Discharge Summary PROCEDURES PERFORMED DURING STAY: [None]. ADMITTING DIAGNOSES / DISCHARGE DIAGNOSES: Acute on chronic intractable pain - likely 2/2 severe osteoarthritis, unlikely 2/2 septic arthritis s/p Leukocytosis - likely 2/2 reactive etiology - likely 2/2 dexamethasone s/p Elevated of Cr - likely 2/2 pre-renal etiology, possibly 2/2 intra-renal etiology HTN Hx of Colon CA Hx of DVT COMPLICATIONS/CHIEF COMPLAINT: Left knee pain HISTORY OF PRESENT ILLNESS: Patient is an 88-year-old female with a past medical history of Severe OA, HTN, Hx of Colon CA s/p resection 02/2018 (present in an umbilical hernia), Hx of DVT (on Eliquis), was presented to the ER with complaints of progressive left knee pain over the last several months. Patient has noted that over this time she's been having more difficulty with ambulation. She has noted that yesterday her knee had locked and she was unable to move for approximately one hour until she had contacted EMS services. Upon arrival to the emergency room, patient was evaluated and found to have symptoms all associated with severe osteoarthritis. Patient was admitted to the hospitalist service for further evaluation and treatment. HOSPITAL COURSE: Acute on chronic intractable pain - likely 2/2 severe osteoarthritis, unlikely 2/2 septic arthritis - Patient is indicated that her pain is much better controlled - She has not experienced any febrile episodes throughout the hospital course - Physical does not reveal any erythema, warmth or tenderness; there only appears to be mild effusion - XR L Knee 12/15: 1. Osteopenia and advanced tricompartmental osteoarthritic degenerative changes. 2. Diffuse soft tissue swelling and suprapatellar effusion. 3. Irregularity involving the patella as well as the lateral femoral condyle concerning for injury versus osteomyelitis versus chronic advanced degenerative change. - Patient is indicated that she does not want to have any intervention done of her knee and wants avoid any needles - Advised patient that without a knee aspiration is difficult to ascertain specific etiologies; she understands risks and is willing to try medications alone at this point - c/w Tramadol PRN at adjusted dose - c/w PT; has progressed well and has been cleared for discharge home - Will be continuing with physical therapy at home s/p Leukocytosis - likely 2/2 reactive etiology - likely 2/2 dexamethasone - ROS negative for source of infection - Remains afebrile / hemodynamically stable - Patient has received Dexamethasone 15mg IV in the ER - Will continue to hold off on antibiotic therapy at this time s/p Elevated of Cr - likely 2/2 pre-renal etiology, possibly 2/2 intra-renal etiology - Creatinine baseline appears to be 0.8-1.2 - Patient's creatinine has returned to baseline - s/p IV fluid hydration HTN - BP well controlled - Will resume Fosinopril upon discharge - c/w Nadolol Hx of Colon CA - s/p resection 02/2018 - 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 ALLERGIES: Please see below. PHYSICAL EXAMINATION ON DISCHARGE: Vitals (See below) General: Lying in bed, no acute distress, comfortable, AAOx3 HEENT: NC, AT CVS: RRR, +S1S2 Lungs: Air entry is fair bilaterally, without evidence of rhonchi, rales or wheezing Abdomen: Remains soft, ND without tenderness Extremities: LE edema is not present, - Calf tenderness Joint: No redness, warmth or significant tenderness on palpation. There does still appear to be some joint effusion LABORATORY DATA: Please see below. ACTIVITY: [As tolerated]. DISCHARGE PLAN: Follow up with Dr. Chilo Kwong within 7 days Remain compliant with treatment plan and medications Return to the ER if you experience any problems DISPOSITION: Home Health Service. DISCHARGE CONDITION: [Stable]. TIME SPENT ON DISCHARGE: Greater than [35] minutes. Vital Signs/I&Os Vital Signs Date Time Temp Pulse Resp B/P (MAP) Pulse Ox O2 Delivery O2 Flow Rate FiO2 12/19/18 06:00 97.1 57 18 155/76 (102) 99 12/16/18 07:30 Room Air I&O- Last 24 Hours up to 6 AM 12/19/18 06:00 Intake Total 420 ml Output Total 1050 ml Balance -630 ml Laboratory Data Labs 24H Laboratory Tests 2 12/19/18 06:26: Nucleated Red Blood Cells % (auto) 0.0, Anion Gap 9, Glomerular Filtration Rate 53.4, Blood Urea Nitrogen 29H, Creatinine 1.04, Sodium Level 140, Potassium Level 4.4, Chloride Level 110H, Carbon Dioxide Level 21, Calcium Level 8.1L CBC/BMP Laboratory Tests 12/19/18 06:26 Red Blood Count 3.97 L, Mean Corpuscular Volume 98.2 H, Mean Corpuscular H emoglobin 30.7, Mean Corpuscular Hemoglobin Concent 31.3 L, Red Cell Distribution Width 12.8, Calcium Level 8.1 L Discharge Medications Scheduled Apixaban Base (Eliquis) 5 Mg Tab, 5 MG PO BID, (Reported) Fosinopril Sodium (Fosinopril Sodium) 10 Mg Tab, 10 MG PO DAILY, (Reported) Nadolol (Nadolol) 40 Mg Tab, 40 MG PO QHS, (Reported) Scheduled PRN Acetaminophen (Acetaminophen Extra Stren) 500 Mg Tab, 1,000 MG PO BID PRN for PAIN, (Reported) Tramadol HCl (Tramadol HCl) 50 Mg Tab, 25 MG PO Q6HP PRN for PAIN Allergies Coded Allergies: Latex (Verified Allergy, Intermediate, RED RASH, 01/16/13) Penicillins (Verified Allergy, Intermediate, RED RASH, 01/16/13) Penicillins Cross Reactors (Verified Allergy, Intermediate, RED RASH, 01/16/13) Phenylbutazone (Verified Allergy, Intermediate, RED RASH, 01/16/13) Povidone (Verified Allergy, Intermediate, BLISTERS, 01/16/13) Povidone Iodine (Verified Allergy, Intermediate, HIVES, 12/16/18) IMELDA ESCOTO MD Dec 19, 2018 13:12
== END 2018-12-19 10:55 | disposition home health service (06) ==
LOC: M ED 19:07 → M ED INP 22:46 → M MS5PR 12-16 15:05
PROVIDERS: ADMIT Internal Medicine; ATTEND Internal Medicine
DX: M17.12 Unilateral primary osteoarthritis, left knee (principal); M25.562 Pain in left knee; I10 Essential (primary) hypertension; D72.829 Elevated white blood cell count, unspecified; R79.89 Other specified abnormal findings of blood chemistry; Z79.01 Long term (current) use of anticoagulants; Z85.038 Personal history of other malignant neoplasm of large intestine; Z79.899 Other long term (current) drug therapy; Z86.718 Personal history of other venous thrombosis and embolism; Z88.0 Allergy status to penicillin; Z88.8 Allergy status to other drugs, medicaments and biological substances; Z91.040 Latex allergy status
CPT/HCPCS: 36415; 73560; 80048; 85025; 85027; 85610; 85652; 85730; 86140; 93971; 96374; 97116; 97161; 97530; 99284; G0378; J1100

== ENCOUNTER → 2018-12-25 | Outpatient (REF) | payer MEDICARE ==
[~2018-12-25] MED LIST changes: +ACET-683 PO; +NADO40TA PO
== END ==
LOC: M LAB REF 12:37
PROVIDERS: ATTEND Internal Medicine
DX: M17.12 Unilateral primary osteoarthritis, left knee (principal); M71.22 Synovial cyst of popliteal space [Baker], left knee

== ENCOUNTER 2021-02-20 10:15 | Emergency (ER) | payer MEDICARE ==
[~2021-02-20] VITALS: Ht 160 cm; Wt 53.2 kg
[~2021-02-20 10:15] MED LIST changes: -FOSI PO; -FOSI10TA2 PO; +FOSI10TA4 PO; +FOSI1TAB PO
[2021-02-20] MEDS ORDERED: NS 1,000 ML IV SCH (10:45)
[2021-02-20] MEDS ORDERED: NS 500 ML IV ONE (10:45)
[2021-02-20 12:40] LABS: BASO % 0.5 % (0.0-1.0); EOS # 0.1 10^3/uL (0.0-0.5); EOS % 1.5 % (0.0-3.0); HEMATOCRIT 41.6 % (36.0-47.0); HEMOGLOBIN 13.2 g/dl (12.0-15.5); LYMPH # 2.2 10^3/uL (1.5-5.0); LYMPH % 27.6 % (24.0-44.0); MEAN CORPUSCULAR HEMOGLOBIN 30.2 pg (27.0-33.0); MEAN CORPUSCULAR HGB CONC 31.7 g/dl (32.0-36.5); MEAN CORPUSCULAR VOLUME 95.2 fl (80.0-96.0); MONO # 0.8 10^3/uL (0.0-0.8); MONO % 9.6 % (2.0-8.0); NEUTROPHILS # 4.8 10^3/uL (1.5-8.5); NEUTROPHILS % 60.2 % (36.0-66.0); PLATELET COUNT, AUTOMATED 253 10^3/uL (150-450); RED BLOOD COUNT 4.37 10^6/uL (4.00-5.40)
[2021-02-20 14:12] LABS: CLOSTRIDIUM DIFFICILE PCR NEGATIVE (NEGATIVE)
[2021-02-20 15:22] LABS: BILIRUBIN,DIRECT 0.2 MG/DL (0.0-0.2); BILIRUBIN,TOTAL 0.6 MG/DL (0.2-1.0); CALCIUM LEVEL 8.5 MG/DL (8.8-10.2); CREATININE FOR GFR 0.96 MG/DL (0.55-1.30); GLOMERULAR FILTRATION RATE 58.3 (>32); POTASSIUM SERUM 4.1 MEQ/L (3.5-5.1)
[2021-02-20 15:23] LABS: ALBUMIN 3.3 GM/DL (3.2-5.2)
[2021-02-20 15:30] VITALS: BP 155/67
--- NOTE | 2021-02-20 18:55 | ECGEPIP ---
[facility] - ED Test Date: 2021-02-20 Pat Name: MICHAEL ALEX Department: Room: - Gender: Female Compliance Technician: SCOTT : [id number] Requested By: Bernice Blake Order Number: [id number] Reading MD: Edwin Reyes Measurements Intervals Ecru Rate: 50 P: HI: QRS: -35 QRSD: 86 T: 4 QT: 448 QTc: 408 Interpretive Statements Sinus braydcardia with sinus arrhythmia Left axis deviation NONSPECIFIC T WAVE ABNORMALITY(S) BASELINE ARTIFACT AFFECTS INTERPRETATION Electronically Signed on 02-20-2021 18:55:14 EDT by Edwin Reyes
== END 2021-02-20 16:41 | disposition home or self-care (01) ==
LOC: M ED 10:15
DX: R19.7 Diarrhea, unspecified (principal); R94.31 Abnormal electrocardiogram [ECG] [EKG]; I10 Essential (primary) hypertension; M19.90 Unspecified osteoarthritis, unspecified site; Z79.01 Long term (current) use of anticoagulants; Z79.899 Other long term (current) drug therapy; Z91.040 Latex allergy status; Z88.0 Allergy status to penicillin; Z85.038 Personal history of other malignant neoplasm of large intestine; Z82.49 Family history of ischemic heart disease and other diseases of the circulatory system; Z83.3 Family history of diabetes mellitus

== ENCOUNTER 2021-04-18 22:08 | Emergency (ER) | payer MEDICARE ==
[~2021-04-18] VITALS: Ht 162.6 cm; Wt 24.2 kg
[2021-04-19 01:20] VITALS: BP 137/63
== END 2021-04-19 02:05 | disposition left against medical advice (07) ==
LOC: M ED 22:08
DX: Z53.21 Procedure and treatment not carried out due to patient leaving prior to being seen by health care provider (principal)